=== PATIENT | male | born 1970 | race Caucasian/White ===

== ENCOUNTER 2017-07-24 20:20 | Emergency (ER) | payer OTHER ==
[~2017-07-24] VITALS: Ht 170.2 cm; Wt 92.1 kg
[~2017-07-24 20:20] MED LIST: CLON2TAB PO; FLUO40CA8 PO; HYDR-548 PO; QUET200T PO
[2017-07-24] MEDS ORDERED: QUETIAPINE FUMARATE 25 MG TABLET PO ONE (23:15)
[2017-07-24] MEDS ORDERED: LORAZEPAM 0.5 MG TABLET PO ONE (23:15)
--- NOTE | 2017-07-24 23:24 | NUR ---
Patient discharged to home in stable conditon. Written and verbal after care instructions given. Patient verbalizes understanding of instructions.
[2017-07-24] MEDS ORDERED: LORAZEPAM 1 MG TABLET ONE (23:34)
[2017-07-24] MEDS ORDERED: QUETIAPINE FUMARATE 200 MG TABLET ONE (23:34)
== END 2017-07-24 23:25 | disposition home or self-care (01) ==
LOC: ER 20:20
DX: Z76.0 Encounter for issue of repeat prescription (principal); F29 Unspecified psychosis not due to a substance or known physiological condition; F41.9 Anxiety disorder, unspecified; I10 Essential (primary) hypertension; F17.200 Nicotine dependence, unspecified, uncomplicated; Z88.1 Allergy status to other antibiotic agents; Z88.6 Allergy status to analgesic agent; B19.20 Unspecified viral hepatitis C without hepatic coma
CPT/HCPCS: 99283; A4663

== ENCOUNTER 2017-11-14 16:33 | Emergency (ER) | payer OTHER ==
[~2017-11-14] VITALS: Ht 170.2 cm; Wt 96.6 kg
--- NOTE | 2017-11-14 18:42 | NUR ---
PT IS IN ROOM #2B. DR MARCUM EVALUATED THE PT.
[2017-11-14] MEDS ORDERED: HYDROCODONE/APAP 5-325MG TABLET PO ONE (19:05)
--- NOTE | 2017-11-14 19:10 | NUR ---
REPORT TAKEN FROM LATONIA ZAVALA. ASSUMING PT CARE AT THIS TIME.
[2017-11-14] MEDS ORDERED: HYDROCODONE/APAP 5-325MG TABLET ONE (19:12)
--- NOTE | 2017-11-14 19:22 | NUR ---
Patient discharged to home in stable conditon. Written and verbal after care instructions given. Patient verbalizes understanding of instructions. Pt ambulated from ER w/ steady gait. Pt took all personal belongings.
[2017-11-14 19:24] VITALS: BP 124/68
== END 2017-11-14 19:24 | disposition home or self-care (01) ==
LOC: ER 16:34
DX: G89.29 Other chronic pain (principal); M54.5 Low back pain; I10 Essential (primary) hypertension; F17.210 Nicotine dependence, cigarettes, uncomplicated; F15.10 Other stimulant abuse, uncomplicated; Z88.1 Allergy status to other antibiotic agents; Z88.6 Allergy status to analgesic agent; Z79.899 Other long term (current) drug therapy
CPT/HCPCS: A4663

== ENCOUNTER 2018-03-30 13:28 | Inpatient (IN) | payer OTHER ==
[~2018-03-30] VITALS: Ht 170.2 cm; Wt 95.3 kg
[2018-03-30] MEDS ORDERED: IV NS 1000 ML 1,000 ML IV ONE ×2 (14:30→16:15)
[2018-03-30 14:45] LABS: BASOPHILS % (AUTO) 0.5 % (0.0-2.0); EOSINOPHILS # (AUTO) 0.3 K/uL (0.0-0.7); EOSINOPHILS % (AUTO) 3.2 % (0.0-7.0); HEMOGLOBIN 14.6 g/dL (12.5-16.3); LYMPHOCYTES # (AUTO) 2.4 K/uL (20.0-40.0); LYMPHOCYTES % (AUTO) 29.4 % (20.5-51.5); MEAN CORPUSCULAR HGB CONC 34 g/dL (32.5-36.3); MEAN CORPUSCULAR VOLUME 88.5 fL (73.0-96.2); MONOCYTES # (AUTO) 0.9 K/uL (2.0-10.0); MONOCYTES % (AUTO) 10.9 % (0.0-11.0); NEUTROPHILS # (AUTO) 4.5 K/uL (1.8-8.9); PLATELET COUNT (AUTO) 234 K/uL (152-348); RED BLOOD CELL COUNT(AUTO) 4.86 MIL/uL (4.06-5.63)
[2018-03-30 14:58] LABS: CREATININE 0.9 mg/dL (0.6-1.3); POTASSIUM 3.8 mmol/L (3.5-5.1)
[2018-03-30 15:01] LABS: ETHANOL < 3 MG/DL (0-0)
[2018-03-30 15:12] LABS: ALANINE AMINOTRANSFERASE 86 U/L (16-63); ALKALINE PHOSPHATASE 87 U/L (50-136); ASPARTATE AMINOTRANSFERASE 53 U/L (15-37); BILIRUBIN,DIRECT 0.2 mg/dL (0.0-0.2); TOTAL PROTEIN, SERUM 7.2 g/dL (6.4-8.2)
[2018-03-30 15:15] LABS: ACETAMINOPHEN < 2.0 ug/mL (10-30)
[2018-03-30 16:03] LABS: *BILIRUBIN,URIN NEGATIVE (NEGATIVE); *BLOOD, URINE NEGATIVE (NEGATIVE); *CLARITY,URINE CLEAR (CLEAR); *COLOR,URINE YELLOW (YELLOW); *KETONES,URINE NEGATIVE (NEGATIVE); *PROTEIN,URINE 1+ (NEGATIVE); *UROBILINOGEN,URINE 0.2 E.U./dl (NORMAL); LEUKOCYTE ESTERASE ,URINE NEGATIVE (NEGATIVE); NITRITE, URINE NEGATIVE (NEGATIVE); UGLUCOSE NEGATIVE (NEGATIVE)
[2018-03-30 16:16] LABS: *AMPHETAMINE, URINE POSITIVE (NEGATIVE); *BARBITURATE, URINE NEGATIVE (NEGATIVE); *CANNABINOID, URINE NEGATIVE (NEGATIVE); *COCCAINE, URINE NEGATIVE (NEGATIVE); *OPIATE, URINE NEGATIVE (NEGATIVE); *PHENCYCLIDINE SCREEN,URINE NEGATIVE (NEGATIVE)
[2018-03-30] MEDS ORDERED: ALPR2TAB2 PO (16:19)
[2018-03-30 16:24] LABS: BACTERIA,URINE NONE SEEN /HPF (NONE SEEN); RBC,URINE 0-3 /HPF (0-3); SQUAMOUS EPITHELIAL CELL,UR FEW /HPF (NONE SEEN); WBC,URINE 0-3 /HPF (0-3)
[2018-03-30] MEDS ORDERED: MAGNESIUM HYDROXIDE 30 ML LIQUID UDC PO PRN (17:00)
[2018-03-30] MEDS ORDERED: ACETAMINOPHEN 325 MG TABLET PO PRN (17:00)
[2018-03-30] MEDS ORDERED: Z GUARD REMEDY PASTE 57 GM TUBE TOP PRN (17:00)
[2018-03-30] MEDS ORDERED: ONDANSETRON 4 MG/2 ML VIAL IV PRN (17:00)
[2018-03-30] MEDS ORDERED: HYDROCODONE/APAP 5-325MG TABLET PO PRN (17:00)
[2018-03-30 17:15] VITALS: BP 97/56
[2018-03-30] MEDS: IV NS 1000 ML 1,000 ML IV SCH (17:28)
[2018-03-30] MEDS: CLONAZEPAM 0.5 MG TABLET PO SCH (18:24)
[2018-03-30] MEDS: FLUOXETINE HCL 20 MG CAPSULE PO SCH (18:24)
[2018-03-30] MEDS: QUETIAPINE FUMARATE 200 MG TABLET PO SCH (20:34)
[2018-03-31] VITALS: BP 103/60
[2018-03-31] MEDS: IV NS 1000 ML 1,000 ML IV SCH ×3 (02:56→23:07)
[2018-03-31 04:00] VITALS: BP 107/60
[2018-03-31 06:22] LABS: BASOPHILS % (AUTO) 0.5 % (0.0-2.0); EOSINOPHILS # (AUTO) 0.3 K/uL (0.0-0.7); EOSINOPHILS % (AUTO) 4.5 % (0.0-7.0); HEMATOCRIT 40.9 % (36.7-47.1); HEMOGLOBIN 13.9 g/dL (12.5-16.3); LYMPHOCYTES # (AUTO) 2.2 K/uL (20.0-40.0); LYMPHOCYTES % (AUTO) 33.5 % (20.5-51.5); MEAN CORPUSCULAR HEMOGLOBIN 30.4 uug (23.8-33.4); MEAN CORPUSCULAR HGB CONC 34 g/dL (32.5-36.3); MEAN CORPUSCULAR VOLUME 89.5 fL (73.0-96.2); MONOCYTES # (AUTO) 0.9 K/uL (2.0-10.0); MONOCYTES % (AUTO) 14.4 % (0.0-11.0); NEUTROPHILS % (AUTO) 47.1 % (38.5-71.5); PLATELET COUNT (AUTO) 220 K/uL (152-348); RED BLOOD CELL COUNT(AUTO) 4.57 MIL/uL (4.06-5.63); WHITE BLOOD COUNT (AUTO) 6.4 K/uL (3.6-10.2)
[2018-03-31 06:35] LABS: CREATININE 0.9 mg/dL (0.6-1.3); MAGNESIUM 2.4 mg/dL (1.8-2.4); PHOSPHOROUS 4.3 mg/dL (2.5-4.9)
[2018-03-31] MEDS: FLUOXETINE HCL 20 MG CAPSULE PO SCH (08:20)
[2018-03-31] MEDS: CLONAZEPAM 0.5 MG TABLET PO SCH (08:21)
[2018-03-31] MEDS ORDERED: LORAZEPAM 2 MG/1 ML VIAL IV PRN (11:00)
[2018-03-31 11:32] VITALS: BP 122/73
[2018-03-31] MEDS: CLONAZEPAM 1 MG TABLET PO SCH ×2 (13:34→17:06)
[2018-03-31 15:52] VITALS: BP 95/52
[2018-03-31 19:40] VITALS: BP 116/61
[2018-03-31] MEDS: QUETIAPINE FUMARATE 200 MG TABLET PO SCH (21:23)
[2018-04-01 03:49] VITALS: BP 114/60
[2018-04-01] MEDS: CLONAZEPAM 1 MG TABLET PO SCH ×2 (08:28→12:53)
[2018-04-01] MEDS: IV NS 1000 ML 1,000 ML IV SCH (08:28)
[2018-04-01] MEDS: FLUOXETINE HCL 20 MG CAPSULE PO SCH (08:28)
[2018-04-01 11:06] VITALS: BP 107/61
[2018-04-01 15:42] VITALS: BP 116/62
== END 2018-04-01 16:15 | disposition home or self-care (01) | DRG 812 ==
LOC: ER 13:30 → TELE 16:27 → MED 03-31 15:03
PROVIDERS: ADMIT Internal Medicine; ATTEND Internal Medicine
DX: T43.621A Poisoning by amphetamines, accidental (unintentional), initial encounter (principal); G92 Toxic encephalopathy; M62.82 Rhabdomyolysis; F25.9 Schizoaffective disorder, unspecified; E86.0 Dehydration; T42.4X1A Poisoning by benzodiazepines, accidental (unintentional), initial encounter; F31.9 Bipolar disorder, unspecified; F19.10 Other psychoactive substance abuse, uncomplicated; Y92.89 Other specified places as the place of occurrence of the external cause; Z86.19 Personal history of other infectious and parasitic diseases; G40.909 Epilepsy, unspecified, not intractable, without status epilepticus; F17.200 Nicotine dependence, unspecified, uncomplicated; F41.9 Anxiety disorder, unspecified; F15.159 Other stimulant abuse with stimulant-induced psychotic disorder, unspecified
CPT/HCPCS: 36415; 70030-TC; 70450; 71045; 80307; 83735; 84100; 85025; 93005; A4663; G0480; G0480-TC; J2060; J7030

== ENCOUNTER 2018-04-13 17:53 | Emergency (ER) | payer OTHER ==
[~2018-04-13] VITALS: Ht 170.2 cm; Wt 95.3 kg
[~2018-04-13 17:53] MED LIST changes: +ALPR2TAB2 PO
[2018-04-13] MEDS ORDERED: NITROFURANTOIN/NITROFURAN MAC 100 MG CAPSULE PO ONE (19:00)
[2018-04-13] MEDS ORDERED: NITROFURANTOIN/NITROFURAN MAC 100 MG CAPSULE ONE (19:01)
[2018-04-13 19:37] LABS: BASOPHILS # (AUTO) 0.1 K/uL (0.0-8.0); BASOPHILS % (AUTO) 0.7 % (0.0-2.0); EOSINOPHILS # (AUTO) 0.3 K/uL (0.0-0.7); EOSINOPHILS % (AUTO) 3.7 % (0.0-7.0); HEMATOCRIT 40.3 % (36.7-47.1); HEMOGLOBIN 13.8 g/dL (12.5-16.3); LYMPHOCYTES # (AUTO) 2.7 K/uL (20.0-40.0); LYMPHOCYTES % (AUTO) 35.5 % (20.5-51.5); MEAN CORPUSCULAR HEMOGLOBIN 30.8 uug (23.8-33.4); MEAN CORPUSCULAR HGB CONC 34 g/dL (32.5-36.3); MEAN CORPUSCULAR VOLUME 89.6 fL (73.0-96.2); MONOCYTES # (AUTO) 0.8 K/uL (2.0-10.0); MONOCYTES % (AUTO) 10.3 % (0.0-11.0); NEUTROPHILS # (AUTO) 3.7 K/uL (1.8-8.9); NEUTROPHILS % (AUTO) 49.8 % (38.5-71.5); PLATELET COUNT (AUTO) 265 K/uL (152-348); WHITE BLOOD COUNT (AUTO) 7.5 K/uL (3.6-10.2)
[2018-04-13 19:48] LABS: POTASSIUM 3.7 mmol/L (3.5-5.1)
[2018-04-13 19:54] LABS: BILIRUBIN,DIRECT 0.1 mg/dL (0.0-0.2); BILIRUBIN,TOTAL 0.4 mg/dL (0.2-1.0); TOTAL PROTEIN, SERUM 6.6 g/dL (6.4-8.2)
[2018-04-13 20:30] LABS: *BILIRUBIN,URIN NEGATIVE (NEGATIVE); *BLOOD, URINE NEGATIVE (NEGATIVE); *COLOR,URINE YELLOW (YELLOW); *KETONES,URINE NEGATIVE (NEGATIVE); *PROTEIN,URINE NEGATIVE (NEGATIVE); *UROBILINOGEN,URINE 0.2 E.U./dl (NORMAL); LEUKOCYTE ESTERASE ,URINE NEGATIVE (NEGATIVE); NITRITE, URINE NEGATIVE (NEGATIVE); PH,URINE 5.5 (5.0-8.0); UGLUCOSE NEGATIVE (NEGATIVE)
[2018-04-13 20:36] LABS: *CLARITY,URINE CLEAR (CLEAR)
[2018-04-13 20:48] LABS: *AMPHETAMINE, URINE POSITIVE (NEGATIVE); *BARBITURATE, URINE NEGATIVE (NEGATIVE); *CANNABINOID, URINE NEGATIVE (NEGATIVE); *COCCAINE, URINE NEGATIVE (NEGATIVE); *OPIATE, URINE NEGATIVE (NEGATIVE); *PHENCYCLIDINE SCREEN,URINE NEGATIVE (NEGATIVE)
[2018-04-13 20:55] LABS: ETHANOL < 3 MG/DL (0-0)
[2018-04-13 20:58] LABS: BACTERIA,URINE NONE SEEN /HPF (NONE SEEN); RBC,URINE 0-3 /HPF (0-3); SQUAMOUS EPITHELIAL CELL,UR NONE SEEN /HPF (NONE SEEN); WBC,URINE 0-3 /HPF (0-3)
--- NOTE | 2018-04-13 21:00 | NUR ---
Patient discharged to home in stable conditon. Written and verbal after care instructions given. Patient verbalizes understanding of instructions. Pt left ER in steady gait.
[2018-04-13 21:01] VITALS: BP 111/59
== END 2018-04-13 21:02 | disposition home or self-care (01) ==
LOC: ER 17:53
DX: F29 Unspecified psychosis not due to a substance or known physiological condition (principal); Z76.0 Encounter for issue of repeat prescription; I10 Essential (primary) hypertension; F17.200 Nicotine dependence, unspecified, uncomplicated; F31.9 Bipolar disorder, unspecified; F15.10 Other stimulant abuse, uncomplicated; Z88.6 Allergy status to analgesic agent; Z88.1 Allergy status to other antibiotic agents
CPT/HCPCS: 36415; 80307; 80324; 85025; A4663; G0480

== ENCOUNTER 2018-04-23 15:18 | Emergency (ER) | payer OTHER ==
[~2018-04-23] VITALS: Ht 167.6 cm; Wt 90.7 kg
[2018-04-23] MEDS ORDERED: LORAZEPAM 2 MG/1 ML VIAL IM ONE (16:45)
[2018-04-23] MEDS ORDERED: LORAZEPAM 2 MG/1 ML VIAL ONE (17:03)
--- NOTE | 2018-04-23 17:20 | NUR ---
Patient discharged to home in stable conditon. Written and verbal after care instructions given. Patient verbalizes understanding of instructions.
[2018-04-23 17:21] VITALS: BP 116/87
--- NOTE | 2018-04-23 17:23 | NUR ---
Pt ambulated out of ER with steady gait.
== END 2018-04-23 17:24 | disposition home or self-care (01) ==
LOC: ER 15:21
DX: F41.9 Anxiety disorder, unspecified (principal); F29 Unspecified psychosis not due to a substance or known physiological condition; F15.10 Other stimulant abuse, uncomplicated; I10 Essential (primary) hypertension; F17.200 Nicotine dependence, unspecified, uncomplicated; Z88.1 Allergy status to other antibiotic agents; Z88.6 Allergy status to analgesic agent
CPT/HCPCS: 96372; 99284; A4663; J2060

== ENCOUNTER → 2018-04-23 | Emergency (ER) | payer OTHER | END | disposition left against medical advice (07) | LOC: ER 12:01 | DX: Z53.21 Procedure and treatment not carried out due to patient leaving prior to being seen by health care provider (principal) ==

== ENCOUNTER 2018-05-16 02:24 | Emergency (ER) | payer OTHER ==
[~2018-05-16] VITALS: Ht 172.7 cm; Wt 90.7 kg
--- NOTE | 2018-05-16 02:32 | NUR ---
Dr. Haro at bedside for MSE.
[2018-05-16] MEDS ORDERED: LORAZEPAM 1 MG TABLET ONE (02:44)
[2018-05-16] MEDS ORDERED: DIPHENOXYLATE HCL/ATROP SULF TABLET ONE (02:45)
[2018-05-16] MEDS ORDERED: DIPHENOXYLATE HCL/ATROP SULF TABLET PO ONE (02:45)
[2018-05-16] MEDS ORDERED: LORAZEPAM 0.5 MG TABLET PO ONE (02:45)
--- NOTE | 2018-05-16 02:45 | NUR ---
Patient discharged to home in stable conditon. Written and verbal after care instructions given. Patient verbalizes understanding of instructions. Pt ambulated out of ER with steady gait, no acute signs of distress, VSS, all belongings taken.
[2018-05-16 02:53] VITALS: BP 118/76
== END 2018-05-16 02:54 | disposition home or self-care (01) ==
LOC: ER 02:29
DX: F20.9 Schizophrenia, unspecified (principal); F41.9 Anxiety disorder, unspecified; R19.7 Diarrhea, unspecified; F15.10 Other stimulant abuse, uncomplicated; F13.20 Sedative, hypnotic or anxiolytic dependence, uncomplicated; Z76.5 Malingerer [conscious simulation]; Z71.6 Tobacco abuse counseling; I10 Essential (primary) hypertension; F17.200 Nicotine dependence, unspecified, uncomplicated; Z88.1 Allergy status to other antibiotic agents; Z88.6 Allergy status to analgesic agent
CPT/HCPCS: A4663

== ENCOUNTER 2018-05-16 14:03 | Emergency (ER) | payer OTHER ==
[~2018-05-16] VITALS: Ht 170.2 cm; Wt 90.7 kg
[2018-05-16] MEDS ORDERED: IV NORMAL SALINE 1000 ML BAG IV ONE (14:30)
--- NOTE | 2018-05-16 14:30 | NUR ---
PATIENT STATES HE HAD DIARRHEA. DENIES VOMITING OR FEVER.
[2018-05-16 14:46] LABS: BASOPHILS % (AUTO) 0.7 % (0.0-2.0); EOSINOPHILS # (AUTO) 0.3 K/uL (0.0-0.7); EOSINOPHILS % (AUTO) 4.7 % (0.0-7.0); HEMATOCRIT 40.2 % (36.7-47.1); HEMOGLOBIN 13.7 g/dL (12.5-16.3); LYMPHOCYTES # (AUTO) 2.3 K/uL (20.0-40.0); LYMPHOCYTES % (AUTO) 37.4 % (20.5-51.5); MEAN CORPUSCULAR HGB CONC 34 g/dL (32.5-36.3); MONOCYTES # (AUTO) 0.8 K/uL (2.0-10.0); MONOCYTES % (AUTO) 13.3 % (0.0-11.0); NEUTROPHILS # (AUTO) 2.7 K/uL (1.8-8.9); NEUTROPHILS % (AUTO) 43.9 % (38.5-71.5); PLATELET COUNT (AUTO) 263 K/uL (152-348); RED BLOOD CELL COUNT(AUTO) 4.41 MIL/uL (4.06-5.63); WHITE BLOOD COUNT (AUTO) 6.2 K/uL (3.6-10.2)
[2018-05-16 14:51] LABS: CREATININE 0.9 mg/dL (0.6-1.3); POTASSIUM 3.7 mmol/L (3.5-5.1)
[2018-05-16 14:58] LABS: BILIRUBIN,DIRECT 0.1 mg/dL (0.0-0.2); BILIRUBIN,TOTAL 0.4 mg/dL (0.2-1.0); TOTAL PROTEIN, SERUM 6.6 g/dL (6.4-8.2)
--- NOTE | 2018-05-16 15:38 | NUR ---
Patient discharged to home in stable conditon. Written and verbal after care instructions given. Patient verbalizes understanding of instructions.
--- NOTE | 2018-05-16 15:38 | NUR ---
IV removed. Catheter intact and site benign. Pressure and 4x4 gauze applied to site. No bleeding noted.
== END 2018-05-16 15:39 | disposition home or self-care (01) ==
LOC: ER 14:03
DX: A08.4 Viral intestinal infection, unspecified (principal); F29 Unspecified psychosis not due to a substance or known physiological condition; F20.9 Schizophrenia, unspecified; I10 Essential (primary) hypertension; F15.10 Other stimulant abuse, uncomplicated; F17.200 Nicotine dependence, unspecified, uncomplicated; Z88.8 Allergy status to other drugs, medicaments and biological substances; Z88.6 Allergy status to analgesic agent
CPT/HCPCS: 36415; 85025; A4663; J7030

== ENCOUNTER 2019-01-24 09:29 | Emergency (ER) | payer OTHER ==
[~2019-01-24] VITALS: Ht 170.2 cm; Wt 99.8 kg
[~2019-01-24 09:29] MED LIST changes: +HYDR-4354 PO; -HYDR-548 PO
[2019-01-24] MEDS ORDERED: TRAZ-214 PO (09:50)
--- NOTE | 2019-01-24 10:20 | NUR ---
Dr Rosales at the bedside for eval.
[2019-01-24 10:48] LABS: BASOPHILS % (AUTO) 0.6 % (0.0-2.0); EOSINOPHILS # (AUTO) 0.2 K/uL (0.0-0.7); EOSINOPHILS % (AUTO) 2.2 % (0.0-7.0); HEMOGLOBIN 15.7 g/dL (12.5-16.3); LYMPHOCYTES % (AUTO) 25.6 % (20.5-51.5); MEAN CORPUSCULAR HEMOGLOBIN 29.6 uug (23.8-33.4); MEAN CORPUSCULAR HGB CONC 34 g/dL (32.5-36.3); MEAN CORPUSCULAR VOLUME 88.5 fL (73.0-96.2); MONOCYTES # (AUTO) 0.8 K/uL (2.0-10.0); MONOCYTES % (AUTO) 10.6 % (0.0-11.0); NEUTROPHILS # (AUTO) 4.7 K/uL (1.8-8.9); PLATELET COUNT (AUTO) 292 K/uL (152-348); RED BLOOD CELL COUNT(AUTO) 5.31 MIL/uL (4.06-5.63); WHITE BLOOD COUNT (AUTO) 7.7 K/uL (3.6-10.2)
[2019-01-24 10:55] LABS: CARBON DIOXIDE 23 mmol/L (21-32); CHLORIDE 104 mmol/L (98-107); GLUCOSE 97 mg/dL (74-106); POTASSIUM 4.2 mmol/L (3.5-5.1); UREA NITROGEN, BLOOD 11 mg/dL (7-18)
[2019-01-24 11:00] LABS: ETHANOL < 3 MG/DL (0-0)
[2019-01-24 11:01] LABS: ACETAMINOPHEN < 2.0 ug/mL (10-30); ALANINE AMINOTRANSFERASE 81 U/L (16-63); ALKALINE PHOSPHATASE 89 U/L (50-136); ASPARTATE AMINOTRANSFERASE 29 U/L (15-37); BILIRUBIN,DIRECT 0.2 mg/dL (0.0-0.2); BILIRUBIN,TOTAL 0.6 mg/dL (0.2-1.0)
[2019-01-24 11:11] LABS: *BILIRUBIN,URIN NEGATIVE (NEGATIVE); *BLOOD, URINE NEGATIVE (NEGATIVE); *CLARITY,URINE CLEAR (CLEAR); *COLOR,URINE YELLOW (YELLOW); *KETONES,URINE NEGATIVE (NEGATIVE); LEUKOCYTE ESTERASE ,URINE NEGATIVE (NEGATIVE); NITRITE, URINE NEGATIVE (NEGATIVE); UGLUCOSE NEGATIVE (NEGATIVE)
[2019-01-24 11:12] LABS: BACTERIA,URINE FEW /HPF (NONE SEEN); RBC,URINE NONE SEEN /HPF (0-3); SQUAMOUS EPITHELIAL CELL,UR FEW /HPF (NONE SEEN); WBC,URINE NONE SEEN /HPF (0-3)
[2019-01-24 11:17] LABS: *AMPHETAMINE, URINE NEGATIVE (NEGATIVE); *BARBITURATE, URINE NEGATIVE (NEGATIVE); *CANNABINOID, URINE NEGATIVE (NEGATIVE); *COCCAINE, URINE NEGATIVE (NEGATIVE); *OPIATE, URINE NEGATIVE (NEGATIVE); *PHENCYCLIDINE SCREEN,URINE NEGATIVE (NEGATIVE)
--- NOTE | 2019-01-24 11:17 | NUR ---
Patient is resting comfortably in bed with eyes closed, NAD noted.
--- NOTE | 2019-01-24 11:26 | NUR ---
Notified PET for pt's Psych eval per MD order. Ana ZAVALA will evaluate pt, ETA 1 hour.
--- NOTE | 2019-01-24 12:54 | NUR ---
Ana from PET at the bedside for Psych eval.
--- NOTE | 2019-01-24 13:31 | NUR ---
Lunch tray provided, pt ate 100% of tray.
[2019-01-24] MEDS ORDERED: CLONAZEPAM 0.5 MG TABLET PO ONE (14:00)
[2019-01-24] MEDS ORDERED: CLONAZEPAM 1 MG TABLET ONE (14:04)
--- NOTE | 2019-01-24 15:06 | NUR ---
Patient is resting comfortably in bed with eyes closed, NAD noted at this time.
--- NOTE | 2019-01-24 16:47 | NUR ---
Pt's Crises eval notes and MD noted, faxed to [facility]. Awaiting call back for admission.
--- NOTE | 2019-01-24 17:16 | NUR ---
Called in report to Anthony in [facility]. Pt to be transfered. Pt is aware of transfer and agrees.
--- NOTE | 2019-01-24 17:18 | NUR ---
Called med Response for matt TRAN is [id number], trip #[id number].
--- NOTE | 2019-01-24 19:12 | NUR ---
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 Sandblast Operator was able to contact the unit and he said 15-20 minutes.
--- NOTE | 2019-01-24 20:25 | NUR ---
GAVE SBAR REPORT TO [facility] UNIT# [phone]
== END 2019-01-24 20:28 | disposition short-term general hospital (02) ==
LOC: ER 09:29
DX: F20.9 Schizophrenia, unspecified (principal); F15.10 Other stimulant abuse, uncomplicated; I10 Essential (primary) hypertension; F17.200 Nicotine dependence, unspecified, uncomplicated; Z88.8 Allergy status to other drugs, medicaments and biological substances; Z79.899 Other long term (current) drug therapy
CPT/HCPCS: 36415; 80048; 80076; 80307; 81001; 85025; 99285; G0480 ×2; G0481; A4663

== ENCOUNTER 2019-02-10 16:40 | Emergency (ER) | payer OTHER ==
[~2019-02-10] VITALS: Ht 170.2 cm; Wt 104.3 kg
[~2019-02-10 16:40] MED LIST changes: +TRAZ-214 PO
--- NOTE | 2019-02-10 17:15 | NUR ---
Patient is Aox4, anxious, denies suicidal or homididal thoughts, pending urine specimen@this time.
--- NOTE | 2019-02-10 17:17 | NUR ---
Urine specimen requested from patient. Urine cup was provided.
[2019-02-10 17:29] LABS: BASOPHILS % (AUTO) 0.4 % (0.0-2.0); EOSINOPHILS # (AUTO) 0.2 K/uL (0.0-0.7); EOSINOPHILS % (AUTO) 2.7 % (0.0-7.0); HEMATOCRIT 40.2 % (36.7-47.1); HEMOGLOBIN 13.6 g/dL (12.5-16.3); LYMPHOCYTES # (AUTO) 2.3 K/uL (20.0-40.0); MEAN CORPUSCULAR HEMOGLOBIN 29.8 uug (23.8-33.4); MEAN CORPUSCULAR HGB CONC 34 g/dL (32.5-36.3); MEAN CORPUSCULAR VOLUME 88.2 fL (73.0-96.2); MONOCYTES # (AUTO) 0.9 K/uL (2.0-10.0); MONOCYTES % (AUTO) 14.5 % (0.0-11.0); NEUTROPHILS # (AUTO) 2.9 K/uL (1.8-8.9); NEUTROPHILS % (AUTO) 46.4 % (38.5-71.5); PLATELET COUNT (AUTO) 242 K/uL (152-348); RED BLOOD CELL COUNT(AUTO) 4.56 MIL/uL (4.06-5.63); WHITE BLOOD COUNT (AUTO) 6.3 K/uL (3.6-10.2)
[2019-02-10 17:38] LABS: CARBON DIOXIDE 28 mmol/L (21-32); CHLORIDE 101 mmol/L (98-107); CREATININE 1.1 mg/dL (0.6-1.3); GLUCOSE 76 mg/dL (74-106); POTASSIUM 3.8 mmol/L (3.5-5.1); UREA NITROGEN, BLOOD 20 mg/dL (7-18)
[2019-02-10 17:39] LABS: ETHANOL < 3 MG/DL (0-0)
[2019-02-10 17:44] LABS: ALANINE AMINOTRANSFERASE 75 U/L (16-63); ALKALINE PHOSPHATASE 78 U/L (50-136); ASPARTATE AMINOTRANSFERASE 41 U/L (15-37); BILIRUBIN,DIRECT 0.2 mg/dL (0.0-0.2)
--- NOTE | 2019-02-10 17:48 | NUR ---
Patient went to the bathroom 3x but patient says that he forgot to give urine sample even after frequent reminders to provided urine specimen.
--- NOTE | 2019-02-10 18:01 | NUR ---
Patient is now extremely agitated, anxious & uncoperative,+ verbally abusive to staff. Security assistance was requested, notified.
[2019-02-10] MEDS ORDERED: OLANZAPINE 10 MG VIAL IM ONE ×2 (18:11→18:15)
[2019-02-10] MEDS ORDERED: LORAZEPAM 2 MG/1 ML VIAL ONE (18:12)
[2019-02-10] MEDS ORDERED: LORAZEPAM 2 MG/1 ML VIAL IM ONE (18:15)
--- NOTE | 2019-02-10 18:51 | NUR ---
[facility] is here & evaluating the patient
--- NOTE | 2019-02-10 19:01 | NUR ---
Patient still needs to provide for urine specimen. SUMMARY report was printed for [facility]. Hands off report given to SALLY Prince accordingly.
--- NOTE | 2019-02-10 19:20 | NUR ---
Patient sleeping on gurny with no distress noted
[2019-02-10 20:45] LABS: *AMPHETAMINE, URINE POSITIVE (NEGATIVE); *BARBITURATE, URINE NEGATIVE (NEGATIVE); *CANNABINOID, URINE NEGATIVE (NEGATIVE); *COCCAINE, URINE NEGATIVE (NEGATIVE); *OPIATE, URINE NEGATIVE (NEGATIVE); *PHENCYCLIDINE SCREEN,URINE NEGATIVE (NEGATIVE)
--- NOTE | 2019-02-10 21:50 | NUR ---
Called [facility] for transport of patient to [facility]. ETA is 1hr. Confirmation # [id number]
--- NOTE | 2019-02-10 22:03 | NUR ---
Called intake and spoke with Hermilo. Accepting MD is DR Handy. Call for report is
--- NOTE | 2019-02-10 22:15 | NUR ---
Gave SBAR report to [facility] team who will transport patient to [facility]
--- NOTE | 2019-02-10 22:48 | NUR ---
Gave SBAR report Eleuterio nurse from [facility]
== END 2019-02-10 22:53 | disposition home or self-care (01) ==
LOC: ER 16:40
DX: F29 Unspecified psychosis not due to a substance or known physiological condition (principal); I10 Essential (primary) hypertension; F17.290 Nicotine dependence, other tobacco product, uncomplicated; F15.10 Other stimulant abuse, uncomplicated; Z88.8 Allergy status to other drugs, medicaments and biological substances; Z79.899 Other long term (current) drug therapy
CPT/HCPCS: 36415; 80048; 80076; 80307; 85025; 96372 ×2; 99285; 99406; G0480; J2060; A4663; J2358

== ENCOUNTER 2019-06-01 12:31 | Emergency (ER) | payer OTHER ==
[~2019-06-01] VITALS: Ht 170.2 cm; Wt 104.3 kg
[~2019-06-01 12:31] MED LIST changes: -CLON2TAB PO
[2019-06-01] MEDS ORDERED: BUPR150T5 PO (12:44)
[2019-06-01] MEDS ORDERED: FLEXERIL PO (12:44)
[2019-06-01] MEDS ORDERED: ALPRAZOLAM 0.25 MG TABLET PO ONE (14:00)
--- NOTE | 2019-06-01 14:10 | NUR ---
PATIENT WAS SEEN BY MD. MEDICATION GIVEN ORDERED. PATIENT STATES HE DOES NOT DRIVE AND UNDERSTANDS DANGERS OF XANAX
[2019-06-01] MEDS ORDERED: ALPRAZOLAM 0.5 MG TABLET ONE (14:12)
--- NOTE | 2019-06-01 14:53 | NUR ---
DC, RX AND FOLLOW UP INSTRUCTIONS GIVEN AND EXPLAINED TO PATIENT WHO STATES HE UNDERSTANDS ALL INSTRUCTIONS INCLUDING XANAX PRECAUTIONS
== END 2019-06-01 14:56 | disposition home or self-care (01) ==
LOC: ER 12:32
DX: F20.9 Schizophrenia, unspecified (principal); I10 Essential (primary) hypertension; F17.200 Nicotine dependence, unspecified, uncomplicated; F31.9 Bipolar disorder, unspecified; F15.10 Other stimulant abuse, uncomplicated; Z76.0 Encounter for issue of repeat prescription; Z88.8 Allergy status to other drugs, medicaments and biological substances; Z79.899 Other long term (current) drug therapy
CPT/HCPCS: A4663